=== PATIENT | female | born 1975 | race Caucasian/White ===

== ENCOUNTER 2016-06-24 09:44 | Emergency (ER) | payer OTHER ==
[~2016-06-24] VITALS: Ht 165.1 cm; Wt 63.5 kg
[~2016-06-24 09:44] MED LIST: BYSTOLIC10 M1 PO; BYSTOLIC20 MG PO; DICYCLOMINE HYD10 MG PO; LEVSIN-SL0.125 MG SL; LOSARTAN POTAS100 M1 PO; MOBIC 15MG15 MG PO; RABEPRAZOLE SOD20 MG PO; SYNTHROID150 MCG PO; VITAMIN B COMPL1 CAP PO; YAZ 3 MG-0.02 M1 TAB PO; ZYRTEC ALLERGY10 MG PO
--- NOTE | 2016-06-24 10:29 | ED GI/GU/ABDOMINAL COMPLAINT ---
History of Present Illness General Chief Complaint: Nausea, Vomiting, Diarrhea Stated Complaint: NAUSEA,VOMITING,VALENZUELA X 3 DAYS Source: patient, old records Exam Limitations: no limitations Vital Signs & Intake/Output Vital Signs & Intake/Output Vital Signs Date Time Temp Pulse Resp B/P Pulse O2 O2 Flow FiO2 Ox Delivery Rate 06/24 1222 98.0 60 18 152/90 100 Room Air 06/24 0951 97.4 70 18 176/93 99 Room Air Allergies Coded Allergies: Sulfa (Sulfonamide Antibiotics) (Intermediate, HIVES 06/24/16) Uncoded Allergies: STERIODS (Severe, NAUSEA CAN TOLERATE SMALL DOSES 06/24/16) Reconcile Medications CETIRIZINE HCL (Zyrtec) 10 MG CAPSULE 1 CAP PO DAILY ALLERGIES (Reported) Cyanocobalamin (Vitamin B-12) 1,000 MCG TABLET 1 TAB PO DAILY SUPPLEMENT ( Reported) ETHINYL ESTRADIOL/DROSPIRENONE (Danielle 28 Tablet) 0.02 MG-3 MG (24) TABLET 1 TAB PO DAILY CONTROL (Reported) Hyoscyamine Sulfate (Levsin-Sl) 0.125 MG TAB.SUBL 1 TAB SL QPM PRN GI ( Reported) Levothyroxine Sodium (Synthroid) 150 MCG TABLET 1 TAB PO DAILY AC THYROID ( Reported) Losartan Potassium 100 MG TABLET 1 TAB PO DAILY HEART (Reported) Lubiprostone (Amitiza) 8 MCG CAPSULE 1 CAP PO BID GI (Reported) Nebivolol HCl (Bystolic) 10 MG TABLET 2 TAB PO DAILY HEART (Reported) Rabeprazole Sodium 20 MG TABLET.DR 1 TAB PO DAILY ACID REFLUX (Reported) Triage Note: C/O HEADACHE, VOMITING X 3 DAYS, UNABLE TO EAT OR DRINK, OR TAKE MEDICATIONS. DENIES ABDOMINAL PAIN OR DIARRHEA. Triage Nurses Notes Reviewed? yes LMP (ages 10-50): unknown ? n Is pt currently ? No Onset: 3 days Duration: day(s):, continues in ED, waxing and waning Timing: recent history Quality/Severity: moderate, vomiting Location: generalized abdomen Radiation: no radiation Activities at Onset: none Prior Abdominal Problems: none Past Sexual History: Unobtainable at this time Modifying Factors: Worsens With: eating. Associated Symptoms: loss of appetite, nausea/vomiting HPI: 3 days prior to admission patient reports episodes of nausea vomiting unable to keep food or fluids and generalized headache. She denies fever chills abdominal pain diarrhea chest pain cough shortness of breath dysuria rash bleeding. Past History Travel History Traveled to [place] past 21 day No Medical History Any Pertinent Medical History? see below for history Cardiovascular: hypertension Gastrointestinal: colitis, irritable bowel syndrome Endocrine: hypothyroidism Surgical History Surgical History: OOPHORECTOMY Psychosocial History What is your primary language Slovak Tobacco Use: Never used ETOH Use: occasional use Family History Hx Contributory? No Review of Systems Review of Systems Constitutional: Reports: see HPI, weakness. EENTM: Reports: no symptoms. Respiratory: Reports: no symptoms. Cardiovascular: Reports: no symptoms. GI: Reports: see HPI, nausea, vomiting. Genitourinary: Reports: no symptoms. Musculoskeletal: Reports: no symptoms. Skin: Reports: no symptoms. Neurological/Psychological: Reports: see HPI, headache. Hematologic/Endocrine: Reports: no symptoms. Immunologic/Allergic: Reports: no symptoms. All Other Systems: Reviewed and Negative Physical Exam Physical Exam General Appearance: well developed/nourished, alert, awake, anxious, moderate distress Head: atraumatic, normal appearance Eyes: Bilateral: normal appearance, PERRL, EOMI, normal inspection. Ears, Nose, Throat, Mouth: hearing grossly normal, dry mucous membranes Neck: normal inspection, supple, full range of motion, normal alignment, no midline tenderness Respiratory: normal breath sounds, chest non-tender, no respiratory distress, quiet respiration, lungs clear Cardiovascular: regular rate/rhythm, normal peripheral pulses, norml femoral pulses equa Peripheral Pulses: 4+ carotid (R), 4+ carotid (L) Gastrointestinal: normal bowel sounds, soft, non-tender, no organomegaly Back: normal inspection, normal range of motion Extremities: normal range of motion, no ligament instability Neurologic/Psych: no motor/sensory deficits, awake, alert, oriented x 3, normal gait, normal mood/affect, document clerk II-XII nml as tested Skin: intact, normal color, warm/dry Core Measures ACS in differential dx? No Severe Sepsis Present: No Septic Shock Present: No Progress Differential Diagnosis: gastritis, pancreatitis, PUD/GERD Plan of Care: Orders Procedure Date/time Status LIPASE 06/24 1011 Complete COMPREHENSIVE METABOLIC PANEL 06/24 1011 Complete CBC WITHOUT DIFFERENTIAL 06/24 1011 Complete Laboratory Tests 06/24/16 1032: Anion Gap 8, Estimated GFR > 60, BUN/Creatinine Ratio 11.3, Glucose 85, Calcium 9.2, Total Bilirubin 0.9, AST 22, ALT 32, Alkaline Phosphatase 63, Total Protein 7.0, Albumin 4.0, Globulin 3.0, Albumin/Globulin Ratio 1.3, Lipase 92, CBC w Diff NO MAN DIFF REQ, RBC 4.42, MCV 85.0, MCH 28.6, RDW 12.7, MPV 7.7, Gran % 65.2, Lymphocytes % 25.4, Monocytes % 6.9, Eosinophils % 0.8, Basophils % 1.7, Absolute Granulocytes 4.9, Absolute Lymphocytes 1.9, Absolute Monocytes 0.5, Absolute Eosinophils 0.1, Absolute Basophils 0.1, PUBS MCHC 33.6 Initial ED EKG: none Departure Departure Time of Disposition: 1415 Disposition: HOME OR SELF CARE Condition: Stable Clinical Impression Primary Impression: Nausea & vomiting Qualifiers: Vomiting type: unspecified Vomiting Intractability: unspecified Qualified Code: R11.2 - Nausea with vomiting, unspecified Secondary Impressions: Dehydration syndrome Headache Qualifiers: Headache type: unspecified Headache chronicity pattern: acute headache Intractability: not intractable Qualified Code: R51 - Headache Referrals: ALLYSON CORMIER APRN (PCP/Family) Departure Forms: Customer Survey General Discharge Information RELEASE- WORK Prescriptions: Current Visit Scripts Ondansetron (Zofran Odt) 1 TAB SL TID PRN nausea #15 TAB
[2016-06-24] MEDS ORDERED: VITAMIN B-121000 MC3 PO (10:34)
[2016-06-24] MEDS ORDERED: AMITIZA8 MC1 PO (10:36)
[2016-06-24 10:37] LABS: ABSOLUTE BASOPHIL COUNT 0.1 /CUMM (0.0-0.2); ABSOLUTE EOSINOPHIL COUNT 0.1 /CUMM (0.0-0.7); ABSOLUTE GRANULOCYTE CT 4.9 /CUMM (1.4-6.5); ABSOLUTE LYMPH COUNT 1.9 /CUMM (1.2-3.4); ABSOLUTE MONOCYTE COUNT 0.5 /CUMM (0.10-0.60); BASOPHIL % 1.7 % (0.0-2.0); EOSINOPHIL % 0.8 % (0-5); GRANULOCYTE % 65.2 % (42.2-75.2); HEMATOCRIT 37.6 % (37-47); MEAN CORPUSCULAR HGB 28.6 PG (27.0-31.0); MEAN CORPUSCULAR HGB CONC 33.6 G/DL (33.0-37.0); MEAN PLATELET VOLUME 7.7 FL (7.4-10.4); PLATELET COUNT 338 /CUMM (130-400); RBC DISTRIBUTION WIDTH 12.7 % (11.5-14.5); RED BLOOD CELL CT 4.42 /CUMM (4.20-5.40); WHITE BLOOD CELL COUNT 7.5 /CUMM (4.8-10.8)
[2016-06-24] MEDS ORDERED: ZOFRAN ODT4 M1 SL (14:17)
[2016-06-24 14:31] VITALS: BP 140/91
== END 2016-06-24 14:32 ==
LOC: ERH 09:44
PROVIDERS: Emergency Medicine
DX: E86.0 Dehydration (principal); R11.2 Nausea with vomiting, unspecified; R51 Headache
CPT/HCPCS: 96361; 96365; 96375; J0131; J1885; J2405